=== PATIENT | female | born 1970 | race Caucasian/White ===

== ENCOUNTER 2025-10-01 13:50 | Outpatient (AMB) | payer MEDICAID, SELFPAY ==
[2025-10-01 14:02] VITALS: BP 127/82; PULSE 84; RESP 19; TEMP 36.9; O2SAT 96; BMI 38.7
--- NOTE | 2025-10-01 14:02 | PD.ORTHCLVIS ---
Vital signs 10/01/25 14:02 Height 1.73 m Height Method Measured Weight 115.751 kg Weight Measurement Method Standing Scale BMI 38.7 BP 127/82 Blood Pressure Source Automatic Cuff Blood Pressure Location Left Upper Arm Position Sitting Respiration 19 Pulse 84 Pulse Source Monitor Temp 98.5 F Temp Source Temporal Artery Scan Pulse Oximetry (%) 96 Oxygen Delivery Method Room Air Med/Allergies Allergies & Medications Allergies No Known Drug Allergies Allergy (Verified 10/01/25 14:03) Medication Reconciliation levothyroxine 100 mcg capsule 100 mcg PO QDAY 03/26/24 [History Confirmed 10/01/25] meloxicam 7.5 mg tablet 7.5 mg PO QDAY #45 tabs 04/10/25 [Rx Confirmed 10/01/25] Exam Exam Patient is in no acute distress and is cooperative with the examination today. Breathing is nonlabored. In no respiratory distress. Patient has no paraspinal tenderness. Spinal deformity [cannot] be appreciated. The gait of the patient is [nonantalgic] Bilateral extremities were evaluated and demonstrates sensation intact to light touch. Palpable pedal pulses are present. No significant edema is present. Bilateral knees were examined and the patient has full strength and range of motion.. The left hip was examined. Patient was able to flex to 90 degrees, adduct to 30 degrees, abduct to 40 degrees, internally rotate to 20 degrees, and externally rotate to 20 degrees. Patient has a negative logroll. Stinchfield is negative. The patient is nontender diffusely to touch. The right hip was examined. Patient was able to flex to [90] degrees, adduct to [30] degrees, abduct to [40] degrees, internally rotate to [20] degrees, and externally rotate to [20] degrees. Patient has pain with logroll. Stinchfield is positive Assessment and Plan Problem List (1) Acute pain of right hip: Status: Acute Plan: Patient is a 53-year-old female with likely right hip osteoarthritis. She had an MRI which demonstrated arthritis and had No labral pathology. Patient has [id number] arthritis of the right hip. We will get repeat x-rays as the last was over a year and a half ago. I also want to examine her back as she has a lot of pain rating to her toes as well. I would recommend a diagnostic and therapeutic cortisone hip injection (2) Unilateral primary osteoarthritis, right hip: Status: Acute Office Procedures GNS Level of Care Nursing/Assessment Patient Status: Established Patient Nursing Assessment/Reassesment: Medication Reconciliation, Update PMH in EMR and Vital Signs Coordination of Care: Complex Care and Chronic Disease 1-5, Education Complex Pt/Fam, Consent,records obtained, informed consent, Results/Orders obtained and Staff clarify orders Established Patient Charge Established Patient Point Assignment: 95 Established Patient Point Charge: EP Level 3 (80-115) MA Intake Visit Data Collection New Patient or Established: Established Patient (seen at [facility] within 3 years) Reason for Visit:: RIGHT HIP PAIN REQUESTING INJECTION Seen by Clinical Staff ONLY (RN/MA): No Quilting Supervisor Required: No PCP or OBGYN visit in last 3 months: Yes Hx Now: No Do You Feel Safe at Home: Yes Authorities Contacted: N/A Questionairres Past Medical History Past Medical History Have you ever been diagnosed with any of the following: Subjective Visit Visit for: follow up visit and hip Immunization / Flu Flu Vaccine in the Last 12 Months: Yes Flu Vaccine Exclusion Criteria: Already Received History of Present Illness Chief complaint: RIGHT HIP PAIN REQUESTING INJECTION Is a 54-year-old female with right hip pain and right hip arthritis. She also has back symptoms. Majority of her pain is in her groin and she has limited range. The pain is affecting her quality life and happiness. She any injections but has tried meloxicam 15 mg as well as a chiropractic Personal History Red flag PMH: none Pain Pain level (0-10): 7 Pain location: outside (lateral) and anterior Pain quality: dull and aching Pain timing: stairs Associated signs & symptoms: none Ambulatory data Ambulatory device: none Treatments Number of previous injections: 0 Improvement with previous injections: No Number of Physical Therapy sessions: 0 Improvement with NSAIDS: no Review of Systems Review of Systems: All systems negative unless otherwise noted in HPI.
--- NOTE | 2025-10-01 14:17 | XR_ITS ---
Examination: Right hip AP, lateral, AP pelvis 3 views Technique: Hip AP lateral, AP pelvis, 3 views Exam date and time: October 01, 2025, 1434 hours INDICATIONS: Right hip pain for years. FINDINGS: Severe right hip osteoarthritis, severe narrowing hip joint with subarticular sclerosis No fracture Mild left hip osteoarthritis Bones of the pelvis intact IMPRESSION: Severe right hip osteoarthritis.
--- NOTE | 2025-10-01 14:17 | XR_ITS ---
EXAMINATION: Lumbar spine 3 views TECHNIQUE: AP lateral: Lateral lower lumbar spine 3 views Date and time: October 31, 2025, 1442 hours INDICATIONS: Low back pain for years. FINDINGS: Adequate alignment lumbar vertebral bodies Mild to moderate diffuse lumbar disc narrowing No lumbar fracture Intact pedicles IMPRESSION: Mild to moderate diffuse lumbar degenerative disc disease
== END 2025-10-01 14:25 | disposition home or self-care (01) ==
LOC: HODSRG 13:50
PROVIDERS: PCP Family Medicine; Referring Provider Family Medicine; Supervising Provider Orthopaedic Surgery Adult Reconstructive Orthopaedic Surgery; Visit Provider Orthopaedic Surgery Adult Reconstructive Orthopaedic Surgery
DX: M16.11 Unilateral primary osteoarthritis, right hip (principal); M25.551 Pain in right hip
CPT/HCPCS: 72100; 73502; 99213; G0463